=== PATIENT | female | born 1940 | race Caucasian/White ===

== ENCOUNTER 2024-06-22 11:16 | Outpatient (RCR) | payer MEDICARE, SELFPAY | END 2024-06-22 23:59 | disposition home or self-care (01) | LOC: RPT 11:16 | PROVIDERS: ATTENDING PHYSICIAN Internal Medicine | DX: I89.0 Lymphedema, not elsewhere classified (principal); Z73.6 Limitation of activities due to disability | CPT/HCPCS: 97162; 97535; 97760 ==

== ENCOUNTER 2024-08-25 10:41 | Outpatient (RCR) | payer MEDICARE, SELFPAY | END 2024-08-25 12:11 | disposition home or self-care (01) | LOC: RPT 10:41 | PROVIDERS: ATTENDING PHYSICIAN Internal Medicine | DX: I89.0 Lymphedema, not elsewhere classified (principal); Z73.6 Limitation of activities due to disability; R26.2 Difficulty in walking, not elsewhere classified; Z85.42 Personal history of malignant neoplasm of other parts of uterus | CPT/HCPCS: 97140; 97530; 97763 ==